=== PATIENT | male | born 1970 | race Caucasian/White ===

== ENCOUNTER 2023-12-30 10:50 | Emergency (ER) | payer SELFPAY ==
[~2023-12-30] VITALS: Ht 167.6 cm; Wt 109.4 kg
[2023-12-30] MEDS: traMADol HCL 50 MG TAB PO ONE (11:34)
[2023-12-30 11:35] VITALS: BP 179/95; PULSE 82; RESP 18; TEMP 97.7; O2SAT 98
[2023-12-30] MEDS ORDERED: TRAM-626 PO (11:48)
== END 2023-12-30 11:55 | disposition home or self-care (01) ==
LOC: ER 10:50
DX: S86.811A Strain of other muscle(s) and tendon(s) at lower leg level, right leg, initial encounter (principal); X50.1XXA Overexertion from prolonged static or awkward postures, initial encounter; Y93.89 Activity, other specified; Y92.89 Other specified places as the place of occurrence of the external cause; Y99.8 Other external cause status